=== PATIENT | female | born 1945 | race Caucasian/White ===

== ENCOUNTER 2018-07-09 08:01 | Day surgery (SDC) | payer MEDICARE, BC, OTHER ==
[~2018-07-09] VITALS: Ht 152.4 cm; Wt 91.2 kg
[~2018-07-09 08:01] MED LIST: ASPI1TAB PO; ASPI325T PO; BIOF4GEL2 EX; BISO10TA PO; CORT1OIN2 TOP; HEPA100SYR IV; LOSA100T PO; LOSA100T8 PO; NS 1,000 ML IV ONE; PRED20TA PO; REFR0.5D8 OU; SLF IV; TYLE325T5 PO; TYLE650T35 PO; VITA100067 PO; [UNRECOGNIZED DRUG - CODE] IV
[2018-07-09] MEDS ORDERED: PROPOFOL 200 MG/20 ML VIAL As Ordered ONE (08:17)
[2018-07-09] MEDS ORDERED: LIDOCAINE 2% INJ 100 MG/5 ML SDV (FOR ANES.) As Ordered ONE (08:17)
--- NOTE | 2018-07-09 09:27 | ROOR ---
Patient Name: Cornelia Brown Procedure Date: 07/09/2018 9:01 AM Date of : 1945 Age: 73 Room: [facility] Gender: Female Note Status: Finalized Procedure: Total Colonoscopy to Cecum Indications: Screening for colorectal malignant neoplasm Providers: John Chambers MD Referring MD: Callie Lyn DO Requesting Provider: Medicines: Monitored Anesthesia Care Complications: No immediate complications. Procedure: Pre-Anesthesia Assessment: - The heart rate, respiratory rate, oxygen saturations, blood pressure, adequacy of pulmonary ventilation, and response to care were monitored throughout the procedure. The Colonoscope was introduced through the anus and advanced to the cecum, identified by appendiceal orifice and ileocecal valve. The colonoscopy was performed without difficulty. The patient tolerated the procedure well. The quality of the bowel preparation was excellent. Findings: The perianal and digital rectal examinations were normal. Non-bleeding internal hemorrhoids were found during retroflexion. The hemorrhoids were small and Grade I (internal hemorrhoids that do not prolapse). Multiple small and large-mouthed diverticula were found in the recto-sigmoid colon, sigmoid colon and descending colon. The exam was otherwise without abnormality on direct and retroflexion views. Impression: - Non-bleeding internal hemorrhoids. - Diverticulosis in the recto-sigmoid colon, in the sigmoid colon and in the descending colon. - The examination was otherwise normal on direct and retroflexion views. - No specimens collected. - The exam was otherwise normal to the cecum. Recommendation: - Patient has a contact number available for emergencies. The signs and symptoms of potential delayed complications were discussed with the patient. Return to normal activities tomorrow. Written discharge instructions were provided to the patient. - High fiber diet. - Discharge patient to home. - Continue present medications. - Repeat colonoscopy for symptoms only. - The findings and recommendations were discussed with the patient's family. John Chambers MD John Chambers MD 07/09/2018 9:27:32 AM This report has been signed electronically. Number of Addenda: 0 Note Initiated On: 07/09/2018 9:01 AM Estimated Blood Loss: Estimated blood loss: none.
[2018-07-09 09:45] VITALS: BP 141/71
== END 2018-07-09 09:52 | disposition home or self-care (01) ==
LOC: M OPP 08:01
PROVIDERS: ATTEND Internal Medicine Gastroenterology
DX: Z12.11 Encounter for screening for malignant neoplasm of colon (principal); K64.0 First degree hemorrhoids; K57.30 Diverticulosis of large intestine without perforation or abscess without bleeding

== ENCOUNTER → 2020-11-23 | Outpatient (REF) | payer MEDICARE, BC, OTHER ==
[~2020-11-23] MED LIST changes: +ACET650T61 PO; -ASPI1TAB PO; +ASPI81TA26 PO; -BISO10TA PO; +BISO10TA13 PO; -NS 1,000 ML IV ONE; -TYLE650T35 PO
[2020-11-25 00:18] LABS: ANTINUCLEAR ANTIBODIES DIRECT Negative (Negative); CYCLIC CITRULLINATED PEPTIDE 19 units (0-19)
== END ==
LOC: M LAB REF 12:05
PROVIDERS: ATTEND Internal Medicine
DX: M25.50 Pain in unspecified joint (principal)

== ENCOUNTER → 2020-12-03 | Outpatient (REF) | payer MEDICARE, BC, OTHER ==
[2020-12-03 17:49] LABS: PERCENT SATURATION 10.3 % (13.2-45.0)
== END ==
LOC: M LAB REF 16:19
PROVIDERS: ATTEND Internal Medicine
DX: M17.0 Bilateral primary osteoarthritis of knee (principal); M25.562 Pain in left knee

== ENCOUNTER → 2020-12-08 | Outpatient (REF) | payer MEDICARE, BC, OTHER ==
[2020-12-08 12:55] LABS: APPEARANCE, URINE CLEAR (CLEAR); BACTERIA, URINE AUTO NEGATIVE (NEGATIVE); BILIRUBIN, URINE AUTO NEGATIVE (NEGATIVE); BLOOD, URINE BLOOD NEGATIVE (NEGATIVE); COLOR, URINE YELLOW (YELLOW); GLUCOSE, URINE (UA) AUTO NEGATIVE (NEGATIVE); KETONE, URINE AUTO NEGATIVE (NEGATIVE); LEUKOCYTE ESTERASE, URINE AUTO TRACE (NEGATIVE); NITRITE, URINE AUTO NEGATIVE (NEGATIVE); PROTEIN, URINE AUTO NEGATIVE (NEGATIVE); RBC, URINE AUTO 0 /HPF (0-3); SPECIFIC GRAVITY URINE AUTO 1.008 (1.002-1.035); SQUAMOUS EPITHELIAL CELL UR AU 1 /HPF (0-6); UROBILINOGEN, URINE AUTO 0.2 mg/dL (0.0-2.0); WBC, URINE AUTO 1 /HPF (0-3)
[2020-12-08 13:18] LABS: INR 0.92; PARTIAL THROMBOPLASTIN TIME 26.9 SECONDS (24.2-38.5); PROTHROMBIN TIME 12.6 SECONDS (12.5-14.3)
[2020-12-08 17:15] LABS: PERCENT SATURATION 23.9 % (13.2-45.0)
== END ==
LOC: M LAB REF 12:27
PROVIDERS: ATTEND Internal Medicine
DX: Z01.818 Encounter for other preprocedural examination (principal); D50.9 Iron deficiency anemia, unspecified; Z79.82 Long term (current) use of aspirin

== ENCOUNTER → 2021-05-27 | Outpatient (REF) | payer MEDICARE, BC, OTHER ==
[2021-05-27 17:57] LABS: PERCENT SATURATION 21.8 % (13.2-45.0)
== END ==
LOC: M LAB REF 16:44
PROVIDERS: ATTEND Internal Medicine
DX: M17.10 Unilateral primary osteoarthritis, unspecified knee (principal)

== ENCOUNTER → 2022-11-17 | Outpatient (CLI) | payer MEDICARE, BC, OTHER ==
[2022-11-17 15:32] LABS: ALBUMIN 3.6 G/DL (3.2-5.2); BILIRUBIN,DIRECT 0.1 MG/DL (<0.4); BILIRUBIN,TOTAL 0.4 MG/DL (0.3-1.2); TOTAL PROTEIN 7.6 G/DL (5.7-8.2)
== END ==
LOC: M LABDRWAD 09:12
PROVIDERS: ATTEND Nurse Practitioner Family
DX: B35.1 Tinea unguium (principal)
CPT/HCPCS: 80076; G0463

== ENCOUNTER → 2023-01-05 | Outpatient (REF) | payer MEDICARE, OTHER ==
[2023-01-05 15:21] LABS: ALBUMIN 3.5 G/DL (3.2-5.2); BILIRUBIN,DIRECT 0.1 MG/DL (<0.4); BILIRUBIN,TOTAL 0.5 MG/DL (0.3-1.2); TOTAL PROTEIN 6.7 G/DL (5.7-8.2)
== END ==
LOC: M SFHCADAM 09:00
PROVIDERS: ATTEND Nurse Practitioner Family
DX: B35.1 Tinea unguium (principal)

== ENCOUNTER → 2023-05-25 | Outpatient (REF) | payer MEDICARE, OTHER | LOC: M LAB REF 16:42 | PROVIDERS: ATTEND Nurse Practitioner Family | DX: R19.7 Diarrhea, unspecified (principal) ==

== ENCOUNTER 2023-05-26 14:01 | Emergency (ER) | payer MEDICARE, BC, OTHER ==
[~2023-05-26] VITALS: Ht 152.4 cm; Wt 80.5 kg
[2023-05-26 14:03] VITALS: TEMP 97.5
[2023-05-26] MEDS ORDERED: KCL 10MEQ/100ML SWI (KRUN) 10 MEQ in IV 1 EA IV ONE (15:40)
[2023-05-26] MEDS ORDERED: POTASSIUM CHLORIDE 10MEQ SR TABLET PO ONE (15:40)
[2023-05-26 15:48] LABS: HEMATOCRIT 42.6 % (36.0-47.0); HEMOGLOBIN 14.4 g/dl (12.0-15.5); MEAN CORPUSCULAR HEMOGLOBIN 29.7 pg (27.0-33.0); MEAN CORPUSCULAR HGB CONC 33.8 g/dl (32.0-36.5); MEAN CORPUSCULAR VOLUME 87.8 fl (80.0-96.0); PLATELET COUNT, AUTOMATED 258 10^3/uL (150-450); RED BLOOD COUNT 4.85 10^6/uL (4.00-5.40); WHITE BLOOD COUNT 6.2 10^3/uL (4.0-10.0)
[2023-05-26 16:03] LABS: ALBUMIN 3.7 G/DL (3.2-5.2); BILIRUBIN,DIRECT 0.3 MG/DL (<0.4); BILIRUBIN,TOTAL 0.8 MG/DL (0.3-1.2); CALCIUM LEVEL 8.8 MG/DL (8.3-10.6); CREATININE FOR GFR 1.3 MG/DL (0.55-1.30); GLOMERULAR FILTRATION RATE 42.4 (>39); MAGNESIUM LEVEL 2.2 MG/DL (1.8-2.4); POTASSIUM SERUM 3.3 MMOL/L (3.5-5.1); TOTAL PROTEIN 7.3 G/DL (5.7-8.2)
[2023-05-26 16:04] LABS: ATYPICAL LYMPH 6 % (0-5); LYMPHOCYTES 16 % (16-44); MONOCYTES 10 % (0-5); NEUTROPHILS 68 % (28-66); PLATELET ESTIMATE NORMAL (NORMAL)
[2023-05-26 17:15] VITALS: BP 138/65
[2023-05-26 17:16] VITALS: O2SAT 97
== END 2023-05-26 17:27 | disposition home or self-care (01) ==
LOC: M ED 14:01
DX: E87.6 Hypokalemia (principal); R00.1 Bradycardia, unspecified; I10 Essential (primary) hypertension; Z79.82 Long term (current) use of aspirin; Z79.811 Long term (current) use of aromatase inhibitors; Z79.899 Other long term (current) drug therapy

== ENCOUNTER → 2023-05-27 | Outpatient (REF) | payer MEDICARE, OTHER, BC | LOC: M LAB REF 15:33 | PROVIDERS: ATTEND Nurse Practitioner Family | DX: R19.7 Diarrhea, unspecified (principal) ==

== ENCOUNTER → 2023-12-08 | Outpatient (CLI) | payer MEDICARE, OTHER, BC ==
[~2023-12-08] MED LIST changes: -CORT1OIN2 TOP; +HYDR28OI12 TOP
== END ==
LOC: M WUC 10:31
PROVIDERS: ATTEND Internal Medicine
DX: R05.3 Chronic cough (principal)

== ENCOUNTER → 2024-06-06 | Outpatient (REF) | payer MEDICARE, OTHER, BC ==
[2024-06-09 14:37] LABS: LYME TOTAL ANTIBODY CIA <= 0.90 Index (<=0.90)
== END ==
LOC: M LAB REF 13:20
PROVIDERS: ATTEND Internal Medicine
DX: M25.50 Pain in unspecified joint (principal)

== ENCOUNTER → 2025-07-16 | Outpatient (REF) | payer MEDICARE, OTHER, BC ==
[2025-07-16 16:49] LABS: BASO # 0.0 10^3/uL (0.0-0.2); BASO % 0.3 % (0.0-1.0); EOS # 0.1 10^3/uL (0.0-0.5); EOS % 1.0 % (0.0-3.0); LYMPH # 2.2 10^3/uL (1.5-5.0); LYMPH % 27.9 % (24.0-44.0); MONO # 0.7 10^3/uL (0.0-0.8); MONO % 9.4 % (2.0-8.0); NEUTROPHILS # 4.8 10^3/uL (1.5-8.5); NEUTROPHILS % 61.1 % (36.0-66.0); PLATELET COUNT, AUTOMATED 381 10^3/uL (150-450)
[2025-07-16 17:11] LABS: INR 0.99
[2025-07-16 17:29] LABS: ALT/SGPT 31.0 U/L (7.0-40); AST/SGOT 18.0 U/L (<34); CALCIUM LEVEL 9.5 MG/DL (8.3-10.6); CARBON DIOXIDE LEVEL 31.0 MMOL/L (20-31); CHLORIDE LEVEL 103.0 MMOL/L (98-107); CREATININE FOR GFR 0.69 MG/DL (0.55-1.30); GLOMERULAR FILTRATION RATE 88.8 (>39); IRON (FE) 54.0 UG/DL (50-170); PERCENT SATURATION 13.4 % (13.2-45.0); POTASSIUM SERUM 4.0 MMOL/L (3.5-5.1); SODIUM LEVEL 144.0 MMOL/L (136-145)
== END ==
LOC: M LABDRWAD 16:41
PROVIDERS: ATTEND Orthopaedic Surgery
DX: Z01.818 Encounter for other preprocedural examination (principal); M17.9 Osteoarthritis of knee, unspecified; M25.561 Pain in right knee; D68.9 Coagulation defect, unspecified